=== PATIENT | female | born 1955 | race Caucasian/White ===

== ENCOUNTER → 2017-01-12 | Outpatient (CLI) | payer OTHER ==
[~2017-01-12] MED LIST: CHOL2000 PO; FEXO1TAB46 PO; HYDR-3124 PO; ZNTT/150 PO
--- NOTE | 2017-01-12 08:05 | DIAGNOSTIC IMAGING REPORT ---
CHEST CT WITHOUT CONTRAST CT DOSE: 169.64 mGy.cm HISTORY: R91.8 Pulmonary [id number] TECHNIQUE: Multiaxial CT images of the chest were performed without contrast. COMPARISON: Chest CT 07/14/2016. FINDINGS: The central airways are patent. No pleural effusions. No pneumothorax. Mild emphysema. A few scattered bilateral pulmonary nodules remain unchanged. Dominant nodule within the right lower lobe on image 133 measures 9 mm. There is an adjacent metallic marker. Cluster of nodules at the base of the right lower lobe also persist. There are few scattered punctate calcified granulomas. Visualized liver and spleen are unremarkable. Mediastinal and bilateral hilar adenopathy persists. Some these lymph nodes demonstrate calcification. There is a left breast implant. The heart is normal in size. The lingular opacity seen on the prior study has resolved. No new focal lung consolidations. IMPRESSION: 1. No significant change in the scattered subcentimeter pulmonary nodules with the largest in the right lower lobe measuring 9 mm. Please refer to the chart below for recommended follow-up. 2. Mediastinal and bilateral hilar lymphadenopathy persists. 3. Mild emphysema. Please refer to below summary of Fleischner criteria recommendations for follow-up of incidental CT nodules (Obdulio Garner, Guidelines for management of small pulmonary nodules detected on CT scans: A statement from the Fleischner Society, Radiology 237: [phone].) SOLID NODULES Solitary nodule size: <6 mm * Low risk patients: no follow-up needed * high risk patients: optional CT at 12 months Solitary nodule size: 6-8 mm * Low risk patients: follow-up at 6-12 months, then consider further follow-up at 18-24 months * high risk patients: initial follow-up CT at 6-12 months and then at 18-24 months if no change Solitary nodule size: >8 mm * either low or high risk patients - consider follow-up CT at 3 months, and/or CT-PET, and/or biopsy Multiple nodules size: <6 mm * Low risk patients: no routine follow-up * high risk patients: optional CT at 12 months Multiple nodules size: 6-8 mm * Low risk patients: follow-up at 3-6 months, then consider further follow-up at 18-24 months * high risk patients: follow-up at 3-6 months, then at 18-24 months if no change Multiple nodules size: >8 mm * Low risk patients: follow-up at 3-6 months, then consider further follow-up at 18-24 months * high risk patients: follow-up at 3-6 months, then at 18-24 months if no change Note: newly detected indeterminate nodule in persons 35 years of age or older. * Low risk patients: minimal or absent history of smoking and/or other known risk factors * high risk patients: history of smoking or of other known risk factors (e.g. first degree relative with lung cancer, or exposure to asbestos, radon, uranium) * if a nodule up to 8 mm is partly solid or is ground glass further follow-up is required after 24 months to exclude possible slow growing adenocarcinoma (JESSE) SUBSOLID NODULES Solitary pure ground-glass nodule * nodule size <6 mm - no CT follow-up required * nodule size >=6 mm - follow-up CT at 6-12 months, then every 2 years until 5 years Solitary part-solid nodule * nodule size <6 mm - no CT follow-up required * nodule size >=6 mm - follow-up CT at 3-6 months. If unchanged, and solid component remains <6 mm, then annual follow-up for 5 years Multiple subsolid nodules * nodule size <6 mm - follow-up CT at 3-6 months, consider further follow-up at 2 and 4 years if stable * nodule size >=6 mm - follow-up CT at 3-6 months, subsequent management based on the most suspicious nodule(s) Electronically signed by: Omari Rehman M.D. 01/12/2017 8:03 AM Dictated Date/Time: 01/12/2017 7:56 AM
== END | disposition home or self-care (01) ==
LOC: C.CTS 07:39
PROVIDERS: ATTEND Surgery
DX: R91.8 Other nonspecific abnormal finding of lung field (principal); J43.9 Emphysema, unspecified

== ENCOUNTER → 2017-07-07 | Outpatient (CLI) | payer OTHER ==
[2017-07-07 14:58] LABS: URINE APPEARANCE CLOUDY (CLEAR); URINE BILIRUBIN NEG (NEG); URINE COLOR YELLOW; URINE EPITHELIAL CELL AUTO 20-30 /lpf (0-5); URINE NITRITE NEG (NEG); URINE SPECIFIC GRAVITY 1.015 (1.000-1.030); UROBILINOGEN NEG (NEG)
[2017-07-07 15:11] LABS: MANUAL MICROSCOPIC REQUIRED? NO; REVIEW REQ? NO
== END | disposition home or self-care (01) ==
LOC: C.LABSPEC 14:40
PROVIDERS: ATTEND Physician Assistant
DX: R39.9 Unspecified symptoms and signs involving the genitourinary system (principal)

== ENCOUNTER → 2018-04-11 | Outpatient (CLI) | payer OTHER ==
[~2018-04-11] MED LIST changes: +RANI150T85 PO; -ZNTT/150 PO
--- NOTE | 2018-04-11 10:09 | DIAGNOSTIC IMAGING REPORT ---
(CHEST) THORAX WITHOUT CT DOSE: 161.08 mGycm HISTORY: Adenopathy R91.8 Pulmonary [id number] Pulmonary nodule, [id number] TECHNIQUE: Multiaxial CT images of the chest were performed without contrast. A dose lowering technique was utilized adhering to the principles of ALARA. COMPARISON: None. FINDINGS: Unchanging pulmonary nodularity. Unchanging mediastinal and hilar adenopathy. Left breast implant is noted. There are no new or interval findings. There are no focal infiltrative changes. IMPRESSION: 1. Stable exam including unchanging multinodular lung parenchyma, 2. Unchanging hilar/mediastinal adenopathy. 3. No change compared to the prior study. The above report was generated using voice recognition software. It may contain grammatical, syntax or spelling errors. Electronically signed by: Tony Barba M.D. 04/11/2018 10:08 AM Dictated Date/Time: 04/11/2018 10:06 AM
== END | disposition home or self-care (01) ==
LOC: C.CTS 09:31
PROVIDERS: ATTEND Surgery
DX: R91.1 Solitary pulmonary nodule (principal); R91.8 Other nonspecific abnormal finding of lung field